=== PATIENT | male | born 1985 | race African-American/Black ===

== ENCOUNTER 2019-04-09 16:00 | Emergency (ER) | payer SELFPAY ==
[~2019-04-09] VITALS: Ht 175.3 cm; Wt 97.5 kg
[2019-04-09] MEDS ORDERED: ONDANSETRON 4 MG/2 ML VIAL IV ONE (16:15)
[2019-04-09] MEDS ORDERED: IV NORMAL SALINE 1000 ML BAG IV ONE (16:15)
[2019-04-09] MEDS ORDERED: MORPHINE SULFATE 2 MG/1 ML DISP.SYRIN IV ONE (16:15)
[2019-04-09] MEDS ORDERED: MORPHINE SULFATE 4 MG/1 ML DISP.SYRIN ONE (16:17)
[2019-04-09] MEDS ORDERED: ONDANSETRON 4 MG/2 ML VIAL ONE (16:17)
[2019-04-09] MEDS ORDERED: KETOROLAC TROMETHAMINE 30 MG INJ ONE (16:37)
[2019-04-09] MEDS ORDERED: HYDROMORPHONE 1 MG/1 ML DISP.SYRIN ONE (16:38)
[2019-04-09 16:41] LABS: *BILIRUBIN,URIN NEGATIVE (NEGATIVE); *BLOOD, URINE NEGATIVE (NEGATIVE); *CLARITY,URINE CLEAR (CLEAR); *COLOR,URINE YELLOW (YELLOW); *KETONES,URINE NEGATIVE (NEGATIVE); *UROBILINOGEN,URINE 0.2 E.U./dl (NORMAL); LEUKOCYTE ESTERASE ,URINE NEGATIVE (NEGATIVE); NITRITE, URINE NEGATIVE (NEGATIVE); UGLUCOSE NEGATIVE (NEGATIVE)
[2019-04-09 16:43] LABS: BASOPHILS # (AUTO) 0.1 K/uL (0.0-8.0); BASOPHILS % (AUTO) 0.8 % (0.0-2.0); EOSINOPHILS # (AUTO) 0.3 K/uL (0.0-0.7); EOSINOPHILS % (AUTO) 4.6 % (0.0-7.0); HEMATOCRIT 45.2 % (36.7-47.1); LYMPHOCYTES # (AUTO) 1.8 K/uL (20.0-40.0); LYMPHOCYTES % (AUTO) 26.2 % (20.5-51.5); MEAN CORPUSCULAR HEMOGLOBIN 27.3 uug (23.8-33.4); MEAN CORPUSCULAR HGB CONC 33 g/dL (32.5-36.3); MONOCYTES # (AUTO) 1.1 K/uL (2.0-10.0); MONOCYTES % (AUTO) 15.8 % (0.0-11.0); NEUTROPHILS # (AUTO) 3.6 K/uL (1.8-8.9); NEUTROPHILS % (AUTO) 52.6 % (38.5-71.5); PLATELET COUNT (AUTO) 341 K/uL (152-348); RED BLOOD CELL COUNT(AUTO) 5.51 MIL/uL (4.06-5.63); WHITE BLOOD COUNT (AUTO) 6.9 K/uL (3.6-10.2)
[2019-04-09] MEDS ORDERED: HYDROMORPHONE 1 MG/1 ML DISP.SYRIN IV ONE (16:45)
[2019-04-09] MEDS ORDERED: KETOROLAC TROMETHAMINE 30 MG INJ IVP ONE (16:45)
[2019-04-09 16:51] LABS: CREATININE 1.3 mg/dL (0.6-1.3); POTASSIUM 2.9 mmol/L (3.5-5.1)
[2019-04-09 16:57] LABS: BILIRUBIN,DIRECT 0.2 mg/dL (0.0-0.2); BILIRUBIN,TOTAL 0.8 mg/dL (0.2-1.0); TOTAL PROTEIN, SERUM 7.6 g/dL (6.4-8.2)
[2019-04-09] MEDS ORDERED: POTASSIUM CHLORIDE 20 MEQ TAB.PRT.SR PO ONE (17:15)
[2019-04-09 17:17] LABS: LYMPHOCYTES % (MANUAL) 28 % (20-40)
[2019-04-09 17:18] LABS: EOSINOPHILS % (MANUAL) 4 % (0-8); MONOCYTES % (MANUAL) 13 % (2-10); NEUTROPHILS % (MANUAL) 55 % (42-75)
[2019-04-09] MEDS ORDERED: POTASSIUM CHLORIDE 20 MEQ TAB.PRT.SR ONE (17:19)
[2019-04-09 17:43] VITALS: BP 122/61
--- NOTE | 2019-04-09 17:44 | NUR ---
IV removed. Catheter intact and site benign. Pressure and 4x4 gauze applied to site. No bleeding noted.
--- NOTE | 2019-04-09 17:54 | NUR ---
Patient discharged to home in stable conditon. Written and verbal after care instructions given. Patient verbalizes understanding of instructions. Pt left Er w/ steady gait accompained by family.
== END 2019-04-09 18:02 | disposition home or self-care (01) ==
LOC: ER 16:04
DX: N20.1 Calculus of ureter (principal)
CPT/HCPCS: 36415; 74176; 80048; 80076; 81001; 83690; 85007; 85025; 96374; 96375; 99284; J1170; J1885; J2270; J2405; 70030-TC; A4663; J7030

== ENCOUNTER 2023-07-12 10:52 | Inpatient (IN) | payer MEDICAID ==
[~2023-07-12] VITALS: Ht 177.8 cm; Wt 101.2 kg
[2023-07-12] MEDS ORDERED: VANCOMYCIN IV 200 ML ONE ×2 (11:59→21:25)
[2023-07-12] MEDS ORDERED: PIPERACILLIN/TAZOBACTAM/D5W 50 ML IV ONE ×3 (11:59→21:23)
[2023-07-12] MEDS: IV NORMAL SALINE 1000 ML BAG IV ONE (12:02)
[2023-07-12] MEDS: PIPERACILLIN SODIUM/TAZOBACTAM 3.375 G in IV DEXTROSE 5% 50 ML IV ONE (12:15)
[2023-07-12 12:52] LABS: BASOPHILS # (AUTO) 0.1 K/UL (0.0-0.2); BASOPHILS % (AUTO) 0.3 % (0.0-2.0); HEMATOCRIT 47.4 % (36.7-47.1); HEMOGLOBIN 15.7 g/dL (12.5-16.3); LYMPHOCYTES # (AUTO) 0.3 K/uL (0.8-4.8); LYMPHOCYTES % (AUTO) 1.4 % (20.5-51.5); MEAN CORPUSCULAR HEMOGLOBIN 27.2 uug (23.8-33.4); MEAN CORPUSCULAR HGB CONC 33 g/dL (32.5-36.3); MEAN CORPUSCULAR VOLUME 82.5 fL (73.0-96.2); MONOCYTES # (AUTO) 1.7 K/uL (0.1-1.30); NEUTROPHILS # (AUTO) 21.9 K/uL (1.8-8.9); NEUTROPHILS % (AUTO) 91.3 % (38.5-71.5); PLATELET COUNT (AUTO) 256 K/uL (152-348); RED BLOOD CELL COUNT(AUTO) 5.75 MIL/uL (4.06-5.63); RED CELL DISTRIBUTION WIDTH 13.8 % (12.1-16.2)
[2023-07-12 13:02] LABS: CALCIUM 9.3 mg/dL (8.5-10.1); CARBON DIOXIDE 22 mmol/L (21-32); CHLORIDE 99 mmol/L (98-107); CREATININE 1.3 mg/dL (0.6-1.3); GLUCOSE 117 mg/dL (74-106); POTASSIUM 3.4 mmol/L (3.5-5.1); SODIUM SERUM 135 mmol/L (136-145); UREA NITROGEN, BLOOD 12 mg/dL (7-18)
[2023-07-12 13:09] LABS: DIFFERENTIAL COMMENT 1
[2023-07-12] MEDS: VANCOMYCIN IV 1,000 MG in IV DEXTROSE 5% 250 ML IV ONE (13:15)
[2023-07-12 13:16] LABS: ALANINE AMINOTRANSFERASE 40 U/L (16-63); ALBUMIN 4.2 g/dL (3.4-5.0); ALKALINE PHOSPHATASE 130 U/L (50-136); ASPARTATE AMINOTRANSFERASE 31 U/L (15-37); BILIRUBIN,DIRECT 0.3 mg/dL (0.0-0.2); BILIRUBIN,TOTAL 1.5 mg/dL (0.2-1.0); NT-PRO BNP 56 pg/mL (0-125); TOTAL PROTEIN, SERUM 8.4 g/dL (6.4-8.2)
[2023-07-12] MEDS ORDERED: CLIN300C3 PO (14:24)
[2023-07-12 15:01] LABS: *BILIRUBIN,URIN NEGATIVE (NEGATIVE); *BLOOD, URINE NEGATIVE (NEGATIVE); *CLARITY,URINE CLEAR (CLEAR); *COLOR,URINE LIGHT YELLOW (YELLOW); *KETONES,URINE NEGATIVE (NEGATIVE); *PROTEIN,URINE NEGATIVE (NEGATIVE); *UROBILINOGEN,URINE 0.2 E.U./dl (NORMAL); LEUKOCYTE ESTERASE ,URINE NEGATIVE (NEGATIVE); NITRITE, URINE NEGATIVE (NEGATIVE); UGLUCOSE NEGATIVE (NEGATIVE)
[2023-07-12] MEDS ORDERED: ONDANSETRON 4 MG/2 ML VIAL IV PRN (17:30)
[2023-07-12] MEDS ORDERED: TEMAZEPAM 15 MG CAPSULE PO PRN (17:30)
[2023-07-12] MEDS ORDERED: MAGNESIUM HYDROXIDE 30 ML LIQUID UDC PO PRN (17:30)
[2023-07-12] MEDS ORDERED: REMEDY ESSENTIAL ZINC PASTE 113 GM TP PRN (17:30)
[2023-07-12] MEDS ORDERED: ACETAMINOPHEN 325 MG TABLET ONE (19:48)
[2023-07-12] MEDS: ACETAMINOPHEN 325 MG TABLET PO PRN (19:50)
[2023-07-12 20:20] VITALS: BP 124/79; TEMP 99; O2SAT 96
[2023-07-12] MEDS ORDERED: VANCOMYCIN HCL 500 MG VIAL ONE (21:25)
[2023-07-12] MEDS: IV NS 1000 ML 1,000 ML IV PRN (21:29)
[2023-07-12] MEDS: HYDROCODONE/APAP 10-325 MG TABLET PO PRN (21:36)
[2023-07-12] MEDS: PIPERACILLIN SODIUM/TAZOBACTAM 3.375 G in IV DEXTROSE 5% 50 ML IV SCH (22:11)
[2023-07-13] MEDS: VANCOMYCIN IV 1,250 MG in IV DEXTROSE 5% 250 ML IV ONE (01:42)
[2023-07-13] MEDS: PANTOPRAZOLE SODIUM 40 MG TABLET.DR PO SCH (06:01)
[2023-07-13 07:13] LABS: BASOPHILS # (AUTO) 0.1 K/UL (0.0-0.2); BASOPHILS % (AUTO) 0.4 % (0.0-2.0); EOSINOPHILS % (AUTO) 0.1 % (0.0-7.0); HEMOGLOBIN 13.9 g/dL (12.5-16.3); LYMPHOCYTES # (AUTO) 0.8 K/uL (0.8-4.8); LYMPHOCYTES % (AUTO) 4.5 % (20.5-51.5); MEAN CORPUSCULAR HEMOGLOBIN 27.6 uug (23.8-33.4); MEAN CORPUSCULAR HGB CONC 34 g/dL (32.5-36.3); MEAN CORPUSCULAR VOLUME 81.2 fL (73.0-96.2); MONOCYTES # (AUTO) 1.4 K/uL (0.1-1.30); MONOCYTES % (AUTO) 8.3 % (0.0-11.0); NEUTROPHILS # (AUTO) 14.7 K/uL (1.8-8.9); NEUTROPHILS % (AUTO) 86.7 % (38.5-71.5); PLATELET COUNT (AUTO) 268 K/uL (152-348); RED BLOOD CELL COUNT(AUTO) 5.05 MIL/uL (4.06-5.63); RED CELL DISTRIBUTION WIDTH 13.9 % (12.1-16.2)
[2023-07-13 07:21] LABS: DIFFERENTIAL COMMENT 1
[2023-07-13 07:29] LABS: BILIRUBIN,TOTAL 1.2 mg/dL (0.2-1.0); CALCIUM 8.3 mg/dL (8.5-10.1); CREATININE 1.3 mg/dL (0.6-1.3); MAGNESIUM 1.9 mg/dL (1.8-2.4); PHOSPHOROUS 2.2 mg/dL (2.5-4.9); POTASSIUM 3.5 mmol/L (3.5-5.1); TOTAL PROTEIN, SERUM 6.9 g/dL (6.4-8.2)
[2023-07-13 11:30] VITALS: BP 115/76; TEMP 98.2; O2SAT 95
[2023-07-13] MEDS: VANCOMYCIN HCL 1,500 MG in IV DEXTROSE 5% 500 ML IV SCH (12:45)
[2023-07-13] MEDS: PIPERACILLIN SODIUM/TAZOBACTAM 3.375 G in IV DEXTROSE 5% 50 ML IV SCH (15:13)
[2023-07-13] MEDS: NEUTRA PHOS PACKET PO ONE (15:13)
[2023-07-13 16:39] VITALS: BP 119/70; TEMP 99.2; O2SAT 97
[2023-07-13 20:00] VITALS: BP 128/74; TEMP 98.4; O2SAT 98
[2023-07-13] MEDS: MORPHINE SULFATE 2 MG/1 ML DISP.SYRIN IV PRN (21:23)
[2023-07-14 05:58] VITALS: BP 118/71; TEMP 99.4; O2SAT 97
[2023-07-14 07:00] LABS: BASOPHILS % (AUTO) 0.3 % (0.0-2.0); EOSINOPHILS # (AUTO) 0.4 K/uL (0.0-0.7); EOSINOPHILS % (AUTO) 3.8 % (0.0-7.0); HEMATOCRIT 40.6 % (36.7-47.1); HEMOGLOBIN 13.7 g/dL (12.5-16.3); LYMPHOCYTES % (AUTO) 10.9 % (20.5-51.5); MEAN CORPUSCULAR HEMOGLOBIN 27.6 uug (23.8-33.4); MEAN CORPUSCULAR HGB CONC 34 g/dL (32.5-36.3); MEAN CORPUSCULAR VOLUME 81.6 fL (73.0-96.2); MONOCYTES # (AUTO) 1.3 K/uL (0.1-1.30); MONOCYTES % (AUTO) 13.9 % (0.0-11.0); NEUTROPHILS # (AUTO) 6.7 K/uL (1.8-8.9); NEUTROPHILS % (AUTO) 71.1 % (38.5-71.5); PLATELET COUNT (AUTO) 265 K/uL (152-348); RED BLOOD CELL COUNT(AUTO) 4.97 MIL/uL (4.06-5.63); RED CELL DISTRIBUTION WIDTH 14.2 % (12.1-16.2); WHITE BLOOD COUNT (AUTO) 9.5 K/uL (3.6-10.2)
[2023-07-14 07:08] LABS: DIFFERENTIAL COMMENT 1
[2023-07-14 07:30] LABS: CALCIUM 8.3 mg/dL (8.5-10.1); CREATININE 1.2 mg/dL (0.6-1.3); PHOSPHOROUS 1.8 mg/dL (2.5-4.9); POTASSIUM 3.3 mmol/L (3.5-5.1)
[2023-07-14] MEDS: POTASSIUM CHLORIDE 20 MEQ TAB.PRT.SR PO ONE (09:19)
[2023-07-14 12:00] VITALS: TEMP 98.7; O2SAT 95
[2023-07-14 12:51] VITALS: BP 123/77; O2SAT 95
[2023-07-14 16:00] VITALS: BP 117/62; TEMP 98; O2SAT 99
[2023-07-14] MEDS: NEUTRA PHOS PACKET PO ONE (16:34)
[2023-07-14 20:00] VITALS: BP 133/79; TEMP 98.3; O2SAT 97
[2023-07-14 20:03] LABS: *AMPHETAMINE, URINE NEGATIVE (NEGATIVE); *BARBITURATE, URINE NEGATIVE (NEGATIVE); *BENZODIAZEPINE, URINE NEGATIVE (NEGATIVE); *CANNABINOID, URINE NEGATIVE (NEGATIVE); *COCCAINE, URINE NEGATIVE (NEGATIVE); *OPIATE, URINE POSITIVE (NEGATIVE); *PHENCYCLIDINE SCREEN,URINE NEGATIVE (NEGATIVE); FENTANYL, URINE NEGATIVE (NEGATIVE)
[2023-07-14] MEDS: PIPERACILLIN SODIUM/TAZOBACTAM 3.375 G in IV DEXTROSE 5% 50 ML IV SCH (21:41)
[2023-07-14] MEDS: CLINDAMYCIN PHOSPHATE IV 600 MG in IV DEXTROSE 5% 100 ML IV SCH (22:14)
[2023-07-15 06:37] VITALS: BP 113/94; TEMP 98.3; O2SAT 97
[2023-07-15 07:22] LABS: CALCIUM 8.7 mg/dL (8.5-10.1); CREATININE 1.1 mg/dL (0.6-1.3); POTASSIUM 3.6 mmol/L (3.5-5.1)
[2023-07-15 11:44] VITALS: BP 132/95; TEMP 98.4; O2SAT 95
[2023-07-15] MEDS: VANCOMYCIN IV 1,500 MG in IV DEXTROSE 5% 500 ML IV ONE (12:25)
[2023-07-15] MEDS ORDERED: OLANZAPINE 10 MG VIAL IM ONE (13:00)
[2023-07-15] MEDS: VANCOMYCIN IV 500 MG in IV DEXTROSE 5% 100 ML IV ONE (15:04)
[2023-07-15 16:32] VITALS: BP 145/89; TEMP 98; O2SAT 98
[2023-07-15 20:00] VITALS: BP 127/73; TEMP 98; O2SAT 95
[2023-07-15] MEDS: VANCOMYCIN IV 2,000 MG in IV DEXTROSE 5% 500 ML IV SCH (20:12)
[2023-07-16 06:31] VITALS: BP 140/75; TEMP 97.7; O2SAT 98
[2023-07-16 07:33] LABS: BASOPHILS % (AUTO) 0.3 % (0.0-2.0); EOSINOPHILS # (AUTO) 0.7 K/uL (0.0-0.7); EOSINOPHILS % (AUTO) 9.8 % (0.0-7.0); HEMATOCRIT 41.1 % (36.7-47.1); HEMOGLOBIN 13.9 g/dL (12.5-16.3); LYMPHOCYTES # (AUTO) 1.4 K/uL (0.8-4.8); LYMPHOCYTES % (AUTO) 19.2 % (20.5-51.5); MEAN CORPUSCULAR HEMOGLOBIN 27.6 uug (23.8-33.4); MEAN CORPUSCULAR HGB CONC 34 g/dL (32.5-36.3); MEAN CORPUSCULAR VOLUME 81.3 fL (73.0-96.2); MONOCYTES # (AUTO) 0.7 K/uL (0.1-1.30); MONOCYTES % (AUTO) 9.5 % (0.0-11.0); NEUTROPHILS # (AUTO) 4.4 K/uL (1.8-8.9); NEUTROPHILS % (AUTO) 61.2 % (38.5-71.5); PLATELET COUNT (AUTO) 336 K/uL (152-348); RED BLOOD CELL COUNT(AUTO) 5.05 MIL/uL (4.06-5.63); RED CELL DISTRIBUTION WIDTH 13.7 % (12.1-16.2); WHITE BLOOD COUNT (AUTO) 7.2 K/uL (3.6-10.2)
[2023-07-16 07:52] LABS: DIFFERENTIAL COMMENT 1
[2023-07-16 07:53] LABS: CALCIUM 8.6 mg/dL (8.5-10.1); CREATININE 1.2 mg/dL (0.6-1.3); PHOSPHOROUS 2.9 mg/dL (2.5-4.9); POTASSIUM 3.3 mmol/L (3.5-5.1)
[2023-07-16] MEDS ORDERED: CLINDAMYCIN PHOSPHATE IV 600 MG in IV DEXTROSE 5% 50 ML IV SCH (08:26)
[2023-07-16] MEDS: POTASSIUM CHLORIDE 20 MEQ TAB.PRT.SR PO ONE (10:44)
[2023-07-16 12:06] VITALS: BP 144/88; TEMP 97.7; O2SAT 97
[2023-07-16] MEDS: CLINDAMYCIN PHOSPHATE IV 600 MG in IV DEXTROSE 5% 50 ML IV SCH (13:39)
[2023-07-16 16:29] VITALS: BP 118/75; TEMP 98.6; O2SAT 96
[2023-07-16 20:00] VITALS: BP 113/76; TEMP 98.2; O2SAT 97
[2023-07-17 06:00] VITALS: BP 118/71; TEMP 98; O2SAT 97
[2023-07-17 08:59] LABS: CREATININE 1.3 mg/dL (0.6-1.3)
[2023-07-17] MEDS: VANCOMYCIN HCL 1,500 MG in IV DEXTROSE 5% 500 ML IV SCH (09:28)
[2023-07-17 11:40] VITALS: BP 111/53; TEMP 98.3; O2SAT 98
[2023-07-17] MEDS ORDERED: CLIN300C12 PO (12:21)
== END 2023-07-17 15:30 | disposition home or self-care (01) | DRG 720 ==
LOC: ER 10:52 → MEDSURG3 20:27
PROVIDERS: ADMIT Nurse Practitioner Acute Care; ATTEND Nurse Practitioner Acute Care
DX: A41.9 Sepsis, unspecified organism (principal); M62.82 Rhabdomyolysis; E87.1 Hypo-osmolality and hyponatremia; L03.115 Cellulitis of right lower limb; E86.1 Hypovolemia; J98.11 Atelectasis; N20.0 Calculus of kidney; R59.0 Localized enlarged lymph nodes; R60.0 Localized edema; Z86.19 Personal history of other infectious and parasitic diseases; Z84.1 Family history of disorders of kidney and ureter; R23.4 Changes in skin texture; R00.0 Tachycardia, unspecified
CPT/HCPCS: 36415; 71045; 73700; 83605; 83735; 84100; 84484; 85025; 85651; 85730; 87040; 93005; A4606; A4663; G0378; J2270; J2543; J3370; J3371; J3490; J7040; J7050; J7060